=== PATIENT | female | born 1965 | race Caucasian/White ===

== ENCOUNTER 2017-12-28 23:01 | Emergency (ER) | payer BC ==
[~2017-12-28] VITALS: Ht 157.5 cm; Wt 59.0 kg
[2017-12-28 23:06] VITALS: BP 114/76
--- NOTE | 2017-12-28 23:10 | NUR ---
ASSUMED CARE OF PT AT THIS TIME. C/O LOWER ABDOMINAL PAIN, RIGHT FLANK PAIN, AND LOW BACK PAIN X 2 WEEKS. PT DENIES ANY N/V/D, CONSTIPATION, OR URINARY COMPLAINTS. AAOX4 WITH EVEN AND STEADY GAIT; PATIENT STATES PAIN OF 10/10 AT THIS TIME; VSS; PATIENT POSITIONED FOR COMFORT; HOB ELEVATED; BEDRAILS UP X2; BED DOWN. ER MD MADE AWARE OF PT STATUS. WILL CONTINUE TO MONITOR.
--- NOTE | 2017-12-28 23:10 | NUR ---
TO BED # 1 AMBULATORY, REPORT GIVEN TO ANDRES WALSH
--- NOTE | 2017-12-28 23:48 | NUR ---
PT TAKEN TO CT
--- NOTE | 2017-12-29 00:09 | NUR ---
Dr. Escoto evaluating patient at bedside.
[2017-12-29 00:45] VITALS: BP 110/78
--- NOTE | 2017-12-29 00:45 | NUR ---
Patient discharged with v/s stable. Written and verbal after care instructions given and explained. Patient alert, oriented and verbalized understanding of instructions. Ambulatory with steady gait. All questions addressed prior to discharge. ID band removed. Patient advised to follow up with PMD. Rx of TRAMADOL, MINERAL OIL, MIRALAX, AND LISINOPRIL given. Patient educated on indication of medication including possible reaction and side effects. Opportunity to ask questions provided and answered.
== END 2017-12-29 00:45 | disposition home or self-care (01) ==
LOC: MED 23:01
DX: K59.00 Constipation, unspecified (principal)
CPT/HCPCS: 81002; 81025; 99284

== ENCOUNTER 2020-01-21 11:34 | Emergency (ER) | payer MEDICAID, SELFPAY ==
[~2020-01-21] VITALS: Ht 154.9 cm; Wt 68.0 kg
[2020-01-21 11:44] VITALS: BP 146/85
--- NOTE | 2020-01-21 11:46 | NUR ---
Patient ambulated to bed 7. RN evaluating patient at bedside.
--- NOTE | 2020-01-21 12:00 | NUR ---
Dr. Escoto is evaluating the patient at bedside.
--- NOTE | 2020-01-21 12:01 | NUR ---
54 y/o female from home c/o heart palpitations and nausea x 8 days. Pt states she spoke to primary care and they stated she may have HLD and was given Atorvastatin. States 6 days ago she began to feel chills during the day, but afebrile. Denies chest pain/SOB. RR even and unlabored. Positioned for comfort. medhx: HTN
--- NOTE | 2020-01-21 12:38 | NUR ---
pt sent to xray with rika li
--- NOTE | 2020-01-21 13:14 | NUR ---
Dr Escoto at bedside re-evaluating pt
[2020-01-21 13:29] VITALS: BP 138/88
--- NOTE | 2020-01-21 13:29 | NUR ---
Patient discharged with v/s stable. Written and verbal after care instructions given and explained. Patient alert, oriented and verbalized understanding of instructions. Ambulatory with steady gait. All questions addressed prior to discharge. ID band removed. Patient advised to follow up with PMD. Rx of Mineral oil 15ml given. Patient educated on indication of medication including possible reaction and side effects. Opportunity to ask questions provided and answered.
== END 2020-01-21 13:29 | disposition home or self-care (01) ==
LOC: MED 11:34
DX: R11.0 Nausea (principal); I10 Essential (primary) hypertension; Z88.0 Allergy status to penicillin
CPT/HCPCS: 74022; 99283

== ENCOUNTER 2020-02-14 06:19 | Day surgery (SDC) | payer MEDICAID ==
[~2020-02-14] VITALS: Ht 154.9 cm; Wt 63.5 kg
[2020-02-14] MEDS ORDERED: MIDAZOLAM 2 MG/2 ML VIAL ONE (07:54)
[2020-02-14] MEDS ORDERED: LIDOCAINE 2% 100 MG/5 ML UJET TP ONE (07:54)
[2020-02-14] MEDS ORDERED: fentaNYL citrate 0.05 MG/ML VIAL ONE (07:55)
[2020-02-14] MEDS ORDERED: MIDAZOLAM 2 MG/2 ML VIAL IVP ONE (09:50)
[2020-02-14] MEDS ORDERED: fentaNYL citrate 0.05 MG/ML VIAL IVP ONE (09:50)
== END 2020-02-14 09:18 | disposition home or self-care (01) ==
LOC: MDS 06:19 → MFCC 06:20 → MDS 09:18
PROVIDERS: ATTEND Internal Medicine Gastroenterology
DX: K59.00 Constipation, unspecified (principal); D12.0 Benign neoplasm of cecum; K29.70 Gastritis, unspecified, without bleeding; R11.10 Vomiting, unspecified; Z88.0 Allergy status to penicillin; Z88.1 Allergy status to other antibiotic agents
CPT/HCPCS: 36415; 43239; 45385; 81025; 86677; J2250; J3010

== ENCOUNTER 2023-08-15 16:12 | Emergency (ER) | payer MEDICAID ==
[2023-08-15] MEDS ORDERED: DICL100G32 TP (20:24)
[2023-08-15] MEDS ORDERED: CAPS1ADH5 TP (20:24)
[2023-08-15] MEDS ORDERED: NAPR-1704 PO (20:24)
== END 2023-08-15 16:35 | disposition left against medical advice (07) ==
LOC: MED 16:12
DX: M79.609 Pain in unspecified limb (principal); Z53.21 Procedure and treatment not carried out due to patient leaving prior to being seen by health care provider

== ENCOUNTER 2023-08-15 17:22 | Emergency (ER) | payer MEDICAID ==
[~2023-08-15] VITALS: Ht 154.9 cm; Wt 67.6 kg
[2023-08-15 17:48] VITALS: BP 174/99; PULSE 67; RESP 16; TEMP 97.2; O2SAT 100
[2023-08-15] MEDS ORDERED: NAPR-1704 PO (20:24)
[2023-08-15] MEDS ORDERED: CAPS1ADH5 TP (20:24)
[2023-08-15] MEDS ORDERED: DICL100G32 TP (20:24)
[2023-08-15] MEDS: KETOROLAC 30 MG/ML VIAL IM ONE (20:25)
== END 2023-08-15 20:40 | disposition home or self-care (01) ==
LOC: MED 17:22
DX: M25.512 Pain in left shoulder (principal); I10 Essential (primary) hypertension; Z79.899 Other long term (current) drug therapy; Z88.0 Allergy status to penicillin; Z88.2 Allergy status to sulfonamides
CPT/HCPCS: 73030; 96372; 99283; J1885